=== PATIENT | male | born 2000 | race Hispanic/Latino ===

== ENCOUNTER 2021-12-20 13:49 | Emergency (ER) | payer BC, MEDICAID ==
[~2021-12-20] VITALS: Ht 180.3 cm; Wt 79.4 kg
[2021-12-20 15:10] LABS: INFLUENZA TYPE A NEGATIVE FOR TYPE A (NEG)
[2021-12-20 15:11] LABS: INFLUENZA TYPE B NEGATIVE FOR TYPE B (NEG)
[2021-12-20 15:37] LABS: BASOPHILS % (AUTO) 0.2 % (0.0-5.0); HEMATOCRIT 42.3 % (42-54); LYMPHOCYTES % (AUTO) 9.9 % (21.0-51.0); MEAN CORPUSCULAR HGB CONC 33.3 g/dL (32.0-36.0); MEAN CORPUSCULAR VOLUME 83.9 fL (79-99); MONOCYTES % (AUTO) 9.4 % (3.0-13.0); NEUTROPHILS % (AUTO) 80.2 % (40.0-77.0); PLATELET COUNT (AUTO) 267 K/uL (130-400); RED BLOOD CELL COUNT(AUTO) 5.04 MIL/uL (4.50-6.20); RED CELL DISTRIBUTION WIDTH 12.9 % (11.0-15.5); WHITE BLOOD COUNT (AUTO) 14.3 K/uL (4.8-10.8)
[2021-12-20] MEDS ORDERED: CYCL10TA16 PO (15:59)
[2021-12-20] MEDS ORDERED: AMOX-429 PO (15:59)
[2021-12-20] MEDS ORDERED: NAPR-1180 PO (15:59)
[2021-12-20] MEDS ORDERED: D-ME1POW16 PO (15:59)
[2021-12-20] MEDS ORDERED: AMOX/CLAV 875/125MG TAB PO ONE (16:00)
[2021-12-20] MEDS ORDERED: CYCLOBENZAPRINE HCL 10 MG TABLET PO ONE (16:00)
[2021-12-20] MEDS ORDERED: ACETAMINOPHEN 500 MG TABLET PO ONE (16:00)
[2021-12-20] MEDS ORDERED: KETOROLAC 60 MG VIAL (30MG/ML) IM ONE (16:00)
[2021-12-20 16:24] LABS: CREATININE 1.1 mg/dL (0.5-1.5); POTASSIUM 3.7 mmol/L (3.5-5.1)
[2021-12-20 16:28] VITALS: BP 132/66
[2021-12-20 16:33] LABS: BILIRUBIN,TOTAL 0.4 mg/dL (0.2-1.0); CRP QUANTITATIVE 122.8 mg/L (0.00-9.0); TOTAL PROTEIN, SERUM 8.4 g/dL (6.0-8.3)
== END 2021-12-20 16:35 | disposition home or self-care (01) ==
LOC: EDH 13:49
DX: J06.9 Acute upper respiratory infection, unspecified (principal); R59.0 Localized enlarged lymph nodes; Z20.822 Contact with and (suspected) exposure to COVID-19
CPT/HCPCS: 36415; 80053; 85025; 86140; 87635; 87804 ×2; 87880; 96372; 99284; C9803; J1885